=== PATIENT | male | born 1935 | race Caucasian/White ===

== ENCOUNTER 2024-06-22 07:14 | Inpatient (IN) | payer MEDICARE, OTHER ==
[2024-06-22] MEDS ORDERED: Boostrix 0.5 ML (Tdap) VIAL (>/=7 yrs of age) ONE (07:47)
[2024-06-22] MEDS ORDERED: Ondansetron PF 4 MG/2 ML Vial ONE (07:52)
[2024-06-22 08:34] LABS: #Basophils 0.06 10x3/uL (0.0-0.2); %Basophils 0.8 % (0.0-1.0); %Eosinophils 3.9 % (0.0-10.0); %Lymphocytes 33.5 % (21.0-51.0); %Monocytes 11.4 % (0.0-10.0); %Neutrophils 49.8 % (42.0-75.0); Hematocrit 46.5 % (42.0-52.0); Hemoglobin 15.3 g/dL (14.0-18.0); Mean Corpuscular HGB CONC 32.9 g/dL (32.0-36.0); Mean Corpuscular Hemoglobin 29.7 pg (27.0-31.0); Mean Corpuscular Volume 90.1 fL (78.0-98.0); Mean Platelet Volume 10.7 fL (7.4-10.4); Platelet Count 233 10x3/uL (130-400); RBC Distribution Width 13.1 % (11.5-14.5); Red Blood Cell (RBC) Count 5.16 mill/uL (4.70-6.10)
[2024-06-22 08:48] LABS: ALT (SGPT) 22 U/L (8-55); AST (SGOT) 25 U/L (5-34); Albumin 3.7 g/dL (3.4-4.8); Alkaline Phosphatase 80 U/L (40-110); Anion Gap 15 mmol/L (10-20); BUN (Urea Nitrogen) 13 mg/dL (8.4-25.7); Bilirubin, Total 0.8 mg/dL (0.2-1.2); Calc. Creatinine Clearance 0 mL/min (70-130); Calcium 8.5 mg/dL (7.8-10.44); Carbon Dioxide 21 mmol/L (23-31); Chloride 107 mmol/L (98-107); Estimated GFR 56; Globulin 3.1 g/dL (2.4-3.5); Glucose 168 mg/dL (83-110); Potassium 3.8 mmol/L (3.5-5.1); Protein, Total 6.8 g/dL (5.8-8.1); Sodium 139 mmol/L (136-145)
[2024-06-22 08:53] LABS: INR-International Normal Ratio 1.1; PTT 30.6 sec (22.9-36.1); Prothrombin Time 13.8 sec (12.0-14.7)
[2024-06-22] MEDS ORDERED: Morphine 2 MG/ML VIAL SLOW IVP PRN (11:49)
[2024-06-22] MEDS ORDERED: Glucagon 1 MG/ML KIT IM PRN (11:49)
[2024-06-22] MEDS ORDERED: Insulin Lispro 100 UNIT/ML 10 ML VIAL SC PRN (11:49)
[2024-06-22] MEDS ORDERED: Ondansetron PF 4 MG/2 ML Vial IVP PRN (11:49)
[2024-06-22] MEDS ORDERED: Dextrose 50% Abboject 50 ML SYRINGE SLOW IVP PRN (11:49)
[2024-06-22] MEDS ORDERED: Dextrose 5% in Water 1,000 ML IV PRN (11:49)
[2024-06-22 11:58] VITALS: BMI 28.6
[2024-06-22] MEDS ORDERED: traMADol HCl 50 MG TAB ONE (13:43)
[2024-06-22] MEDS: traMADol HCl 50 MG TAB PO PRN (13:49)
[2024-06-23 05:39] LABS: #Basophils 0.04 10x3/uL (0.0-0.2); %Basophils 0.3 % (0.0-1.0); %Eosinophils 0.3 % (0.0-10.0); %Lymphocytes 12.7 % (21.0-51.0); %Monocytes 14.5 % (0.0-10.0); Hematocrit 41.4 % (42.0-52.0); Hemoglobin 13.7 g/dL (14.0-18.0); Mean Corpuscular HGB CONC 33.1 g/dL (32.0-36.0); Mean Corpuscular Hemoglobin 29.9 pg (27.0-31.0); Mean Corpuscular Volume 90.4 fL (78.0-98.0); Mean Platelet Volume 10.7 fL (7.4-10.4); Platelet Count 238 10x3/uL (130-400); RBC Distribution Width 13.3 % (11.5-14.5); Red Blood Cell (RBC) Count 4.58 mill/uL (4.70-6.10)
[2024-06-23 05:53] LABS: Anion Gap 13 mmol/L (10-20); BUN (Urea Nitrogen) 24 mg/dL (8.4-25.7); Calc. Creatinine Clearance 54 mL/min (70-130); Calcium 8.5 mg/dL (7.8-10.44); Carbon Dioxide 21 mmol/L (23-31); Chloride 109 mmol/L (98-107); Estimated GFR 63; Glucose 128 mg/dL (83-110); Sodium 138 mmol/L (136-145)
[2024-06-23] MEDS: Sodium Chloride 0.9% 500 ML IV SCH (06:46)
[2024-06-23] MEDS ORDERED: PARoxetine 20 MG TAB PO PRN (09:07)
[2024-06-23] MEDS: Acetaminophen 325 MG TAB PO PRN (19:03)
[2024-06-23] MEDS: Pantoprazole DR 40 MG TAB PO SCH (20:28)
[2024-06-23] MEDS: Simvastatin 10 MG TAB PO SCH (20:28)
[2024-06-24] MEDS: Alogliptin 6.25 MG TAB PO SCH (09:30)
[2024-06-24] MEDS: Aspirin 81 mg Enteric Coated Tablet PO SCH (09:30)
[2024-06-24] MEDS: Clopidogrel Bisulfate 75 MG TAB PO SCH (09:30)
[2024-06-24] MEDS: Multivitamin W/ Minerals 1 TAB PO SCH (09:30)
[2024-06-24] MEDS: Losartan 25 MG TAB PO SCH (09:30)
[2024-06-24] MEDS: Polyethylene Glycol 3350 17 GM Packet PO SCH (09:31)
[2024-06-24] MEDS: Empagliflozin 25 MG TAB PO SCH (09:31)
[2024-06-24] MEDS: Senokot S 8.6-50 MG TAB PO SCH (09:31)
[2024-06-24] MEDS: Amlodipine 5 MG TAB PO SCH (09:31)
[2024-06-24] MEDS: Glimepiride 1 MG TAB PO SCH (11:57)
[2024-06-29] MEDS ORDERED: Gabapentin 100 MG CAP PO PRN (07:24)
[2024-06-29] MEDS: Saxagliptin 2.5 MG TAB PO SCH ×2 (10:01→10:16)
[2024-06-30 05:51] VITALS: TEMP 98
[2024-06-30 07:27] VITALS: BP 159/71
== END 2024-06-30 11:35 | DRG 563 ==
LOC: ERS 07:14 → ERHOLD 10:53 → SURG A 18:14 → OBSVTOIN 06-24 07:34
PROVIDERS: ADMIT Specialist; ATTEND Specialist
DX: S42.201A Unspecified fracture of upper end of right humerus, initial encounter for closed fracture (principal); V03.90XA Pedestrian on foot injured in collision with car, pick-up truck or van, unspecified whether traffic or nontraffic accident, initial encounter; I48.91 Unspecified atrial fibrillation; R55 Syncope and collapse; S05.11XA Contusion of eyeball and orbital tissues, right eye, initial encounter; Z79.4 Long term (current) use of insulin; Z79.01 Long term (current) use of anticoagulants; Z88.0 Allergy status to penicillin; Z88.1 Allergy status to other antibiotic agents; Z79.899 Other long term (current) drug therapy; Z79.82 Long term (current) use of aspirin
CPT/HCPCS: 36415; 36416; 70450; 70486; 71045; 72125; 80048; 80053; 85025; 85610; 85730; 86850; 86900; 86901; 90471; 90715; 96374; G0378; G0390; J2405; J7030